=== PATIENT | female | born 1970 | race Caucasian/White ===

== ENCOUNTER 2016-10-26 17:15 | Emergency (ER) | payer MEDICAID ==
[~2016-10-26] VITALS: Wt 78.0 kg
[~2016-10-26 17:15] MED LIST: ACET325T45 PO; CIPRO; DIPH25CA6; IBUP-1542 PO; LEVE250T66 PO; TERB15CR; [UNRECOGNIZED DRUG - CODE] PO
[2016-10-26] MEDS ORDERED: ACETAMINOPHEN 325 MG TAB PO ONE (18:30)
[2016-10-26] MEDS ORDERED: ACET1TAB40 PO (19:17)
[2016-10-26] MEDS ORDERED: IBUP-1542 PO (19:19)
--- NOTE | 2016-10-26 19:23 | ERD ---
ER Documentation Chief Complaint Date/Time DATE: 10/26/16 TIME: 19:21 Chief Complaint BACK PAIN AFTER FALL AT WORK 10 DAYS HPI This 46-year-old female slipped and fell on her side at work 10 days ago. She complains of right upper back pain and right knee pain. She is able to ambulate. She has no restricted range of motion weakness. There is no history of head injury, neck pain, loss consciousness, vomiting, fevers, chest pain or shortness of breath. ROS All systems reviewed and are negative except as per history of present illness. Medications Home Meds Active Scripts Ibuprofen* (Motrin*) 600 Mg Tab, 600 MG PO Q6, #20 TAB Prov:LALY BARKSDALE MD 10/26/16 Acetaminophen with Codeine (Acetaminophen-Cod #3 Tablet) 1 Each Tablet, 1 TAB PO Q6H Y for PAIN, #15 TAB Prov:LALY BARKSDALE MD 10/26/16 Acetaminophen* (Acetaminophen*) 325 Mg Tablet, 325 MG PO Q4H Y for PAIN AND OR ELEVATED TEMP, #30 TAB Prov:ECTOR TRUJILLO DO 06/12/16 Ibuprofen* (Ibuprofen*) 600 Mg Tablet, 600 MG PO Q6H Y for PAIN, #20 TAB Prov:ECTOR TRUJILLO DO 06/12/16 Reported Medications Diphenhydramine Hcl (Benadryl) 25 Mg Cap 11/23/12 Terbinafine Hcl (Lamisil) 15 Gm Cream.gm. 11/23/12 [Cipro] No Conflict Check 05/07/12 Carbamazepine (Tegretol) 100 Mg Tab.chew, PO 2 TABS AM, 1 TAB HS 03/25/12 Levetiracetam* (Keppra*) 250 Mg Tablet, PO BID 03/25/12 Allergies Allergies: Coded Allergies: No Known Allergy (Unverified , 11/23/12) PMhx/Soc History of Surgery: No Anesthesia Reaction: No Hx Neurological Disorder: Yes (SEIZURES) Hx Respiratory Disorders: No Hx Cardiac Disorders: No Hx Psychiatric Problems: No Hx Miscellaneous Medical Probl: No Hx Alcohol Use: No Hx Substance Use: No Hx Tobacco Use: No Physical Exam Vitals Vital Signs Date Time Temp Pulse Resp B/P Pulse Ox O2 Delivery O2 Flow Rate FiO2 3/7/17 17:24 98.0 65 18 111/62 99 Physical Exam Const: [] Alert, [id number]. Head: Atraumatic Eyes: Normal Conjunctiva ENT: Normal External Ears, Nose and Mouth. Neck: Full range of motion..~ No meningismus. Resp: Clear to auscultation bilaterally Cardio: Regular rate and rhythm, no murmurs Abd: Soft, non tender, non distended. Normal bowel sounds Skin: No petechiae or rashes Back: No midline or flank tenderness. Mild tenderness in the upper intrascrotal scapular area without appreciable deformities or point tenderness. There is no restricted range of motion weakness or deformities. There is mild tenderness in the right lateral patella without deformities, effusion, erythema. There is no calf swelling or Homans sign. Ext: No cyanosis, or edema Neur: Awake and alert Psych: Normal Mood and Affect Results 24 hrs Current Medications Medications (Trade) Dose Ordered Sig/Usha Route PRN Reason Start Time Stop Time Status Last Admin Dose Admin Acetaminophen (Tylenol Tab) 650 mg ONCE ONCE PO 10/26/16 18:30 10/26/16 18:31 DC Procedures/MDM X-ray right knee 3V Interpreted by me: Bones: [No fracture] Joints: [No dislocation] Foreign body: [None]. Impression-normal right knee x-ray Chest X-ray AP lateral 2 interpreted by me: Soft Tissue: No acute abnormalities Bones: No acute abnormalities Mediastinum/Cardiac Silhouette/Lungs: [No acute abnormalities]. Impression- no fractures or acute abnormalities noted on two-view chest x-ray Patient presents with upper thoracic back pain without signs or symptoms to suggest fracture, dislocation, hemothorax, pneumothorax, additional acute conditions due to her fall 10 days ago. She also has signs and symptoms of right knee contusion without evidence of fracture, dislocation, bacterial infection, deficits, DVT. She will treated with ibuprofen and Tylenol 3 and instructions to follow-up with primary doctor this week return to ER for new or worsening symptoms. Departure Diagnosis: Primary Impression: Injury of back Encounter type: initial encounter Qualified Code: S39.92XA - Injury of back , initial encounter Condition: Stable Patient Instructions: Contusion, Lower Extremity, Thoracic Strain Additional Instructions: Examines normal hoy. Cheque otro vez con ayala doctor primario en el proximo liang or regresa para mas o nueva simptomas. LALY BARKSDALE MD Oct 26, 2016 19:23
--- NOTE | 2016-10-26 19:26 | RADRPT ---
PROCEDURE: XR Chest. CLINICAL INDICATION: chest pain TECHNIQUE: PA and lateral views of the chest were obtained COMPARISON: None FINDINGS: The heart and mediastinum are within normal limits. The lungs are clear. There is no pleural effusion or pneumothorax. The bones and soft tissues are unremarkable. RPTAT: AA IMPRESSION: No acute disease. .Dong Olmedo MD, MD Date Time Electronically viewed and signed by .Dong Olmedo MD, on 10/26/2016 19:26 .S/
--- NOTE | 2016-10-26 19:26 | RADRPT ---
PROCEDURE: RIGHT knee x-ray CLINICAL INDICATION: Knee pain TECHNIQUE: AP, tunnel and cross-table lateral views of the knee were obtained. COMPARISON: None FINDINGS: There is normal mineralization. No acute fracture or dislocation is seen. There is no joint effusion. There are no significant degenerative changes. There is no significant soft tissue swelling. RPTAT: AA IMPRESSION: Normal x-ray of the right knee. .Dong Olmedo MD, MD Date Time Electronically viewed and signed by .Dong Olmedo MD, MD on 10/26/2016 19:26 .S/
== END 2016-10-26 19:35 | disposition home or self-care (01) ==
LOC: FTE 17:15
DX: S39.92XA Unspecified injury of lower back, initial encounter (principal); R07.9 Chest pain, unspecified; W01.0XXA Fall on same level from slipping, tripping and stumbling without subsequent striking against object, initial encounter; Y92.89 Other specified places as the place of occurrence of the external cause
CPT/HCPCS: 71020; 73562; Z7502; Z7610